=== PATIENT | female | born 1955 | race Asian ===

== ENCOUNTER → 2016-08-20 | Outpatient (CLI) | payer OTHER | END | disposition home or self-care (01) | LOC: CFH 11:54 | PROVIDERS: ATTEND Internal Medicine Cardiovascular Disease | DX: R01.1 Cardiac murmur, unspecified (principal) | CPT/HCPCS: 78452; 93017; A9502 ==

== ENCOUNTER → 2018-05-18 | Outpatient (CLI) | payer OTHER | END | disposition home or self-care (01) | LOC: CFH 08:53 | PROVIDERS: ATTEND Nurse Practitioner Family | DX: M25.422 Effusion, left elbow (principal); M17.0 Bilateral primary osteoarthritis of knee; M19.022 Primary osteoarthritis, left elbow; M53.3 Sacrococcygeal disorders, not elsewhere classified; M46.1 Sacroiliitis, not elsewhere classified; W10.9XXA Fall (on) (from) unspecified stairs and steps, initial encounter | CPT/HCPCS: 72190 ==

== ENCOUNTER → 2018-05-24 | Outpatient (CLI) | payer OTHER | END | disposition home or self-care (01) | LOC: CFH 15:46 | PROVIDERS: ATTEND Nurse Practitioner Family | DX: I35.8 Other nonrheumatic aortic valve disorders (principal); I10 Essential (primary) hypertension | CPT/HCPCS: 93306 ==

== ENCOUNTER → 2018-08-20 | Outpatient (CLI) | payer OTHER | END | disposition home or self-care (01) | LOC: CFH 08:22 | PROVIDERS: ATTEND Internal Medicine | DX: M19.022 Primary osteoarthritis, left elbow (principal); M25.422 Effusion, left elbow; M77.02 Medial epicondylitis, left elbow; M25.742 Osteophyte, left hand; M21.822 Other specified acquired deformities of left upper arm ==